=== PATIENT | male | born 1985 | race Caucasian/White ===

== ENCOUNTER 2019-08-26 09:02 | Emergency (ER) | payer OTHER ==
[~2019-08-26] VITALS: Ht 175.3 cm; Wt 70.3 kg
--- NOTE | 2019-08-26 09:04 | NUR ---
PT AMBULATED TO ER BED 06
[2019-08-26 09:06] VITALS: BP 130/80
[2019-08-26] MEDS ORDERED: CLINDAMYCIN 600 MG/4 ML VIAL IM ONE (09:25)
[2019-08-26] MEDS ORDERED: IBUPROFEN 800 MG TAB PO ONE (09:25)
[2019-08-26] MEDS ORDERED: DEXAMETHASONE 10 MG/ML VIAL IM ONE (09:25)
[2019-08-26] MEDS ORDERED: NEOMYCIN/POLYMYXIN/BACITRACIN 0.9 GM/1 PKT TP ONE (09:25)
[2019-08-26] MEDS ORDERED: HYDROcodone/APAP 5/325 MG 1 TAB TAB PO ONE (09:25)
--- NOTE | 2019-08-26 09:30 | NUR ---
33 Y/O M C/O PAIN TO RIGHT HAND 06/28 X1 DAY. RIGHT HAND HAS AN OPEN ABSCESS, RED IN COLOR, WARM TO TOUCH. PATIENT DENIES ANY DRUG USE. STATES THE AREA WAS RED LAST NIGHT, PAIN WOKE HIM UP THIS MORNING, WITH THE REDNESS AND ABSCESS A NEW FINDING FOR HIM TODAY. PATIENT POSITIONED IN BED FOR COMFORT, LOWERED TO LOWEST POSITION X1 SIDE RAIL IN PLACE. ALLERGY: TOPIRAMATE
--- NOTE | 2019-08-26 10:20 | NUR ---
Patient discharged with v/s stable. Written and verbal after care instructions given and explained. Patient alert, oriented and verbalized understanding of instructions. Ambulatory with steady gait. All questions addressed prior to discharge. ID band removed. Patient advised to follow up with PMD. Rx of MOTRIN, CLINDAMYCIN given. Patient educated on indication of medication including possible reaction and side effects. Opportunity to ask questions provided and answered.
[2019-08-26 10:22] VITALS: BP 130/85
== END 2019-08-26 10:20 | disposition home or self-care (01) ==
LOC: MED 09:02
DX: L02.522 Furuncle left hand (principal); F12.10 Cannabis abuse, uncomplicated
CPT/HCPCS: 96372; 99283; J1100; J3490